=== PATIENT | female | born 1980 | race African-American/Black ===

== ENCOUNTER 2018-12-11 18:59 | Emergency (ER) | payer OTHER ==
[2018-12-11 19:16] VITALS: BP 122/77; PULSE 77; TEMP 98.4; BMI 28.3
--- NOTE | 2018-12-11 19:35 | PDOC ---
Rapid Medical Evaluation Chief Complaint: Bite Time Seen by Provider: 12/11/18 19:25 Medical Evaluation: Allergies Allergy/AdvReac Type Severity Reaction Status Date / Time No Known Allergies Allergy Verified 12/11/18 19:11 Vital Signs Temp Pulse Resp BP Pulse Ox 98.4 F 77 20 122/77 100 12/11/18 19:11 12/11/18 19:11 12/11/18 19:11 12/11/18 19:11 12/11/18 19:11 12/11/18 19:26 Pt c/o: bit by a pitbull prior to arrival in rt inner ankle, pt states dog has its rabies shot Pt on brief exam: + puncture wound to rt inner ankle, surrounding skin intact Pt ordered for: none Pt to proceed to the ED Discharge Disposition - Diagnosis Dog bite - Referrals - Patient Instructions - Post Discharge Activity
[2018-12-11] MEDS ORDERED: ACETAMINOPHEN 500 MG TABLET (FP) PO ONE (20:44)
[2018-12-11] MEDS ORDERED: IBUPROFEN 600 MG TABLET (FP) PO ONE ×2 (20:44→20:53)
[2018-12-11] MEDS ORDERED: DIPHTH,PERTUSS(ACELL),TET 0.5 ML DISP.SYRIN IM ONE ×2 (20:44→20:53)
[2018-12-11] MEDS ORDERED: ACETAMINOPHEN 500 MG TABLET (FP) ONE (20:53)
--- NOTE | 2018-12-11 21:04 | PDOC ---
History of Present Illness - General Chief Complaint: Bite Stated Complaint: BITTEN BY A DOG Time Seen by Provider: 12/11/18 19:25 History Source: Patient Exam Limitations: No Limitations - History of Present Illness Initial Comments: 12/11/18 20:56 HISTORY OF PRESENT ILLNESS: 38-year-old woman denies comorbidities who presents emergency department for evaluation of right leg pain status post dog bite. Patient reports she was at a friend of her friend's house had a when she went to use the restroom. Patient did not know that the apartment midwife and birth center owner's dog's puppies were in the bathroom. Mother came and bit the patient in the back of the leg when she entered the bathroom. Patient states this happened at approximately 5 AM. Patient with sleep and when she woke up had worse pain in her right leg. Patient states she is able to keep in contact with the dog's midwife and birth center owner and the dog to be monitored for rabies. Patient states her last tetanus shot was approximately 11 years ago. No recent travel or sick contacts. PAST MEDICAL HISTORY: Denies past medical history SURGICAL HISTORY: Denies ALLERGIES: No known drug allergies REVIEW OF SYSTEMS General/Constitutional: Denies fever or chills. Denies weakness, weight change. HEENT: Denies change in vision. Denies ear pain or discharge. Denies sore throat. Cardiovascular: Denies chest pain or shortness of breath. Respiratory: Denies cough, wheezing, or hemoptysis. Gastrointestinal: Denies nausea, vomiting, diarrhea or constipation. Denies rectal bleeding. Genitourinary: Denies dysuria, frequency, or change in urination. Musculoskeletal: see HPI Skin and breasts: Denies rash or easy bruising. Neurologic: Denies headache, vertigo, loss of consciousness, or loss of sensation. Psychiatric: Denies depression or anxiety. Endocrine: Denies increased thirst. Denies abnormal weight change. Hematologic/Lymphatic: Denies anemia, easy bleeding, or history of blood clots. Allergic/Immunologic: Denies hives or skin allergy. Denies latex allergy. PHYSICAL EXAM General Appearance: Well-appearing, appropriately dressed. No apparent distress , no intoxication. Respiratory/Chest: Lungs CTAB. No shortness of breath, chest tenderness, respiratory distress, accessory muscle use. No crackles, rales, rhonchi, stridor , wheezing, dullness Cardiovascular: RRR. S1, S2. No JVD, murmur, bradycardia, tachycardia. Vascular Pulses: Dorsalis-Pedis (R): 2+, Dorsalis-Pedis (L): 2+ Musculoskeletal/Extremities: Normal inspection. FROM of all extremities, normal capillary refill. Pelvis Stable. No CVA tenderness. No tenderness to extremities, pedal edema, swelling, erythema or deformity. Increased pain with extension of the right ankle. Integumentary: 2 cm linear wounds present to the medial aspect of the right lower leg proximal to the malleolus. Punctate wounds on the contralateral side. No erythema, discharge or drainage is noted from either wound. Bleeding is well- controlled. Neurologic: train conductor II-XII intact. Fully oriented, alert. Appropriate mood/affect. Motor strength 5/5. No appreciable EOM palsy, facial droop or sensory deficit. 12/11/18 21:12 Past History - Past Medical History Allergies/Adverse Reactions: Allergies Allergy/AdvReac Type Severity Reaction Status Date / Time No Known Allergies Allergy Verified 12/11/18 19:11 Home Medications: Ambulatory Orders Amox-Tr/K Cl [Augmentin - 875Mg Tablet] 1 tab PO BID #20 tablet 12/11/18 Cancer: No Cardiac Disorders: No CVA: No COPD: No - Immunization History Td Vaccination: Yes - Suicide/Smoking/Psychosocial Hx Smoking History: Current every day smoker Have you smoked in the past 12 months: Yes Number of Cigarettes Smoked Daily: 5 Information on smoking cessation initiated: Yes Hx Alcohol Use: Yes (last pm) Drug/Substance Use Hx: No *Physical Exam - Vital Signs Last Vital Signs Temp Pulse Resp BP Pulse Ox 98.4 F 77 20 122/77 100 12/11/18 19:11 12/11/18 19:11 12/11/18 19:11 12/11/18 19:11 12/11/18 19:11 Medical Decision Making - Medical Decision Making 12/11/18 20:57 A/P: 38-year-old woman for evaluation after dog bite 2 cm linear laceration present to the medial aspect of the right lower leg Punctate wounds present to the lateral aspect of the right lower leg No erythema discharge or drainage is present from either wound Bleeding is well-controlled Full range of motion of ankle and knee of both lower extremities Boostrix Tylenol 1 g orally now Motrin 600 mg orally now I'll defer rabies treatment as patient is able to contact the midwife and birth center owner. Discharge home with prescription for Augmentin to be taken twice a day for the next 10 days. *DC/Admit/Observation/Transfer Diagnosis at time of Disposition: Dog bite Qualifiers: Encounter type: initial encounter Qualified Code(s): W54.0XXA - Bitten by dog, initial encounter - Discharge Dispostion Disposition: HOME Condition at time of disposition: Fair Decision to Admit order: No - Prescriptions Prescriptions: Amox-Tr/K Cl [Augmentin - 875Mg Tablet] 1 tab PO BID #20 tablet - Referrals Referrals: David Hanson MD [Primary Care Provider] - Alejo Sales MD [Staff Physician] - - Patient Instructions Printed Discharge Instructions: DI for Animal Bites Additional Instructions: You were bitten by a dog today. Because you're able to contact the dog's midwife and birth center owner rabies treatment is not indicated at this time. If the dog show signs of rabies, return to the emergency department immediately for treatment. Take Augmentin 875 mg twice a day for the next 10 days. Apply bacitracin to wounds twice a day after washing with antibacterial soap. Your tetanus has been updated today. Return to the emergency department for any discharge or drainage from the wounds , red streaking up your leg from the wounds or for any other concerns. Thank you very much for choosing us to provide your emergent health care needs. - Post Discharge Activity Forms/Work/School Notes: Back to Work
== END 2018-12-11 21:21 | disposition home or self-care (01) ==
LOC: JERFT 18:59
PROC: 3E0234Z Introduction of Serum, Toxoid and Vaccine into Muscle, Percutaneous Approach (ICD-10-PCS; principal; 2018-12-11)
DX: S81.851A Open bite, right lower leg, initial encounter (principal); W54.0XXA Bitten by dog, initial encounter; Y93.89 Activity, other specified; Y92.031 Bathroom in apartment as the place of occurrence of the external cause; Y99.8 Other external cause status
CPT/HCPCS: 90471; 90715; 99281-25

== ENCOUNTER 2023-06-17 17:28 | Emergency (ER) | payer OTHER ==
[2023-06-17 18:09] VITALS: BMI 24.8
[2023-06-17 19:52] LABS: BASO % 0.3 % (0-2.0); EOS % 0.4 % (0-4.5); HEMATOCRIT 32.9 % (32.4-45.2); HEMOGLOBIN 10.7 GM/dL (10.7-15.3); LYMPH % 15.5 % (8-40); MCH 29.6 pg (25.7-33.7); MCHC 32.5 g/dl (32.0-36.0); MEAN CELL VOLUME 90.9 fl (80-96); MEAN PLT VOLUME 7.3 fl (7.5-11.1); MONO % 11.5 % (3.8-10.2); NEUT % 72.3 % (42.8-82.8); PLATELET COUNT 304 10^3/uL (134-434); RBC 3.62 M/mm3 (3.60-5.2); RDW 13.5 % (11.6-15.6); WHITE BLOOD COUNT 11.5 K/mm3 (4.0-10.0)
[2023-06-17 19:56] LABS: EPI CELLS 13 /uL (0-25.1); HYALINE CASTS 2 /uL (0-3.1); PH,URINE 5.5 (5.0-8.0); URINE APPEARANCE CLOUDY; URINE BACTERIA >9,000 /uL (0-1359); URINE BILIRUBIN NEGATIVE (NEGATIVE); URINE COLOR YELLOW; URINE GLUCOSE (UA) NEGATIVE (NEGATIVE); URINE KETONE NEGATIVE (NEGATIVE); URINE LEUK ESTERASE 2+ (NEGATIVE); URINE NITRITE POSITIVE (NEGATIVE); URINE PROTEIN 1+ (NEGATIVE); URINE RBC 36 /uL (0-23.9); URINE WBC 301 /uL (0-25.8)
[2023-06-17] MEDS ORDERED: CEPHALEXIN MONOHYDRATE 500 MG CAPSULE (UD) PO ONE (20:05)
[2023-06-17] MEDS ORDERED: CEPHALEXIN MONOHYDRATE 500 MG CAPSULE (UD) ONE (20:09)
[2023-06-17 20:14] LABS: POTASSIUM 4.2 mmol/L (3.5-5.1)
[2023-06-17 20:16] LABS: CALCIUM 8.9 mg/dL (8.5-10.1)
[2023-06-17 20:17] LABS: ALBUMIN 3.1 g/dl (3.4-5.0); BLOOD UREA NITROGEN 10.4 mg/dL (7-18)
[2023-06-17 20:20] LABS: CREATININE 0.9 mg/dL (0.55-1.3)
[2023-06-17 20:22] LABS: BILIRUBIN,TOTAL 0.7 mg/dL (0.2-1); TOT PROT 7.2 g/dl (6.4-8.2)
[2023-06-17 21:35] VITALS: BP 122/78; PULSE 90; RESP 18; TEMP 98.1
== END 2023-06-17 21:36 | disposition home or self-care (01) ==
LOC: JER 17:28
DX: N39.0 Urinary tract infection, site not specified (principal); R50.9 Fever, unspecified; R11.2 Nausea with vomiting, unspecified; R06.00 Dyspnea, unspecified; R51.9 Headache, unspecified; R07.89 Other chest pain; R10.11 Right upper quadrant pain; R35.0 Frequency of micturition; Z20.822 Contact with and (suspected) exposure to COVID-19
CPT/HCPCS: 0241U-QW; 36415; 71045-TC-FY; 76705-TC; 80053; 81003; 84484; 84703; 85025; 87086; 87186; 93005; 93010; 99285-25